=== PATIENT | female | born 1970 | race Caucasian/White ===

== ENCOUNTER 2018-05-19 07:41 | Emergency (ER) | payer BC ==
[2018-05-19 08:26] VITALS: BP 140/71
--- NOTE | 2018-05-19 09:27 | UC ---
Skin Complaint HPI - HPI Summary HPI Summary: Cut distal left ring finger x 2 days ago with a utility knife, with recurrent wound opening. Remains tender with mild erythema, no drainage. Declines tetanus today and will check status with primary. Leaving for [place] tomorrow. - History of Current Complaint Chief Complaint: UCLaceration Time Seen by Provider: 05/19/18 09:16 Stated Complaint: LEFT RING FINGER CONCERN Hx Obtained From: Patient Hx Last Menstrual Period: 08/06/15 Onset/Duration: Sudden Onset, Lasting Days - 2 Skin Exposure Onset/Duration: Days Ago - 2 Timing: Constant Pain Intensity: 0 Location: Discrete Aggravating Factor(s): Touch Alleviating Factor(s): Nothing Associated Signs & Symptoms: Positive: Negative Related History: Trauma - Allergy/Home Medications Allergies/Adverse Reactions: Allergies Allergy/AdvReac Type Severity Reaction Status Date / Time No Known Allergies Allergy Verified 05/19/18 08:19 PMH/Surg Hx/FS Hx/Imm Hx Previously Healthy: Yes - Surgical History Surgical History: None - Family History Known Family History: Positive: None - Social History Occupation: Employed Full-time Lives: With Family Alcohol Use: Occasionally Substance Use Type: None Smoking Status (MU): Never Smoked Tobacco Review of Systems All Other Systems Reviewed And Are Negative: Yes Constitutional: Positive: Negative Skin: Positive: Other - laceration Eyes: Positive: Negative ENT: Positive: Negative Respiratory: Positive: Negative Cardiovascular: Positive: Negative Gastrointestinal: Positive: Negative Genitourinary: Positive: Negative Motor: Positive: Negative Neurovascular: Positive: Negative Musculoskeletal: Positive: Negative Neurological: Positive: Negative Psychological: Positive: Negative Is Patient Immunocompromised?: No Physical Exam Triage Information Reviewed: Yes Appearance: Well-Appearing, No Pain Distress Vital Signs: Initial Vital Signs Temp 98.4 F 05/19/18 08:20 Pulse 65 05/19/18 08:20 Resp 16 05/19/18 08:20 BP 140/71 05/19/18 08:20 Pulse Ox 100 05/19/18 08:20 ENT Exam: Normal Respiratory: Positive: Lungs clear, Normal breath sounds Cardiovascular: Positive: RRR, No Murmur Skin Exam: Other - left hand ring finger with shallow 2 cm laceration medial distal digit. One deeper area approx 3 mm with ooze of blood. Erythema of distal digit. DIP and PIP joints normal, no hand pain. Course/Dx - Course Course Of Treatment: dressing, topical antibiotic, oral antibiotic on hold for travel. - Differential Diagnoses - Skin Complaint Differential Diagnoses: Other - laceration left hand ring finger - Diagnoses Provider Diagnosis: Laceration of finger of left hand Discharge - Sign-Out/Discharge Documenting (check all that apply): Patient Departure All imaging exams completed and their final reports reviewed: No Studies - Discharge Plan Condition: Stable Disposition: HOME Prescriptions: Cephalexin CAP* [Keflex 500 CAP*] 500 mg PO TID #15 cap Patient Education Materials: Finger Laceration (ED) Referrals: Marion Nagy MD [Primary Care Provider] - Additional Instructions: Please remove the finger dressing at the end of the work day. If there is progressive redness and tenderness, please begin use of the oral antibiotic cephalexin. I think that using topical antibiotic and a protective dressing alone will allow the wound to heal. - Billing Disposition and Condition Condition: STABLE Disposition: Home
== END 2018-05-19 09:45 | disposition home or self-care (01) ==
LOC: UCCORT 07:41
DX: S61.215A Laceration without foreign body of left ring finger without damage to nail, initial encounter (principal); W26.0XXA Contact with knife, initial encounter; Y92.9 Unspecified place or not applicable
CPT/HCPCS: 99212; G0463